=== PATIENT | male | born 1995 | race Caucasian/White ===

== ENCOUNTER 2021-04-15 20:32 | Inpatient (IN) | payer MEDICAID, OTHER ==
[~2021-04-15] VITALS: Ht 182.9 cm; Wt 101.6 kg
[2021-04-15 21:05] LABS: AMPHET/METH SCREEN,URINE NEGATIVE (NEGATIVE); BARBITURATE SCREEN, URINE NEGATIVE (NEGATIVE); BENZODIAZEPINES SCREEN,URINE POSITIVE (NEGATIVE); CANNABINOID SCREEN,URINE POSITIVE (NEGATIVE); COCAINE SCREEN,URINE NEGATIVE (NEGATIVE); METHADONE SCREEN, URINE NEGATIVE (NEGATIVE); OPIATE SCREEN,URINE NEGATIVE (NEGATIVE)
[2021-04-15 21:06] LABS: PHENCYCLIDINE SCREEN,URINE NEGATIVE (NEGATIVE)
[2021-04-15 21:16] LABS: BASOPHILS % (AUTO) 0.1 % (0.0-2.0); HEMATOCRIT 47.2 % (41-53); HEMOGLOBIN 15.9 g/dL (13.5-17.5); LYMPHOCYTES # (AUTO) 2.6 K/uL (1.0-4.8); LYMPHOCYTES % (AUTO) 33.1 % (22.0-44.0); MEAN CORPUSCULAR HEMOGLOBIN 30.2 pg (26.0-34.0); MEAN CORPUSCULAR HGB CONC 33.7 G/dL (31.0-37.0); MEAN CORPUSCULAR VOLUME 90 fL (80-100); MONOCYTES # (AUTO) 1.2 K/uL (0.1-1.0); MONOCYTES % (AUTO) 15.7 % (2.0-9.0); NEUTROPHILS # (AUTO) 3.8 K/uL (1.8-7.7); NEUTROPHILS % (AUTO) 49.1 % (40.0-70.0); PLATELET COUNT (AUTO) 163 K/uL (150-450); RED BLOOD CELL COUNT(AUTO) 5.27 MIL/uL (4.50-5.90)
[2021-04-15] MEDS ORDERED: FAMO40TA7 PO (21:21)
[2021-04-15] MEDS ORDERED: PROP40TA7 PO (21:21)
[2021-04-15] MEDS ORDERED: FLUO20CA36 PO (21:21)
[2021-04-15] MEDS ORDERED: ONDA4TAB10 PO (21:21)
[2021-04-15] MEDS ORDERED: GABA600T10 PO (21:21)
[2021-04-15] MEDS ORDERED: SUCR1TAB PO (21:21)
[2021-04-15] MEDS ORDERED: DIAZ5TAB5 PO (21:21)
[2021-04-15] MEDS ORDERED: CLON0.1T2 PO (21:21)
[2021-04-15 21:24] LABS: ANION GAP 14 mmol/L (8-16); CALCIUM, TOTAL 8.6 mg/dL (8.8-10.5); CARBON DIOXIDE 26 mmol/L (22-29); CHLORIDE 106 mmol/L (98-107); CREATININE 0.83 mg/dL (0.60-1.30); GLOMERULAR FILTR. RATE CALC > 60 mL/min (>60); GLUCOSE,RANDOM 111 mg/dL (70-110); POTASSIUM 3.2 mmol/L (3.5-5.1); SODIUM SERUM 146 mmol/L (136-145); UREA NITROGEN, BLOOD 4 mg/dL (7-18)
[2021-04-15 21:30] LABS: ALANINE AMINOTRANSFERASE 209 U/L (12-78); ALBUMIN 3.8 g/dL (3.4-5.0); ALKALINE PHOSPHATASE 192 U/L (46-116); ASPARTATE AMINOTRANSFERASE 98 U/L (15-37); BILIRUBIN,TOTAL 0.5 mg/dL (0.1-1.0); TOTAL PROTEIN, SERUM 7.7 g/dL (6.4-8.2)
[2021-04-15 21:50] LABS: COVID AG,FIA SOURCE NASOPHARYNGEAL
[2021-04-15] MEDS ORDERED: LORazepam 2 MG TABLET PO ONE (22:00)
[2021-04-15] MEDS ORDERED: LORazepam 2 MG TABLET PO PRN (22:30)
[2021-04-15] MEDS: ZOLPIDEM TARTRATE 10 MG TABLET PO PRN (22:46)
[2021-04-15] MEDS: HALOPERIDOL 5 MG TABLET PO PRN (22:46)
[2021-04-15] MEDS ORDERED: NICOTINE 21 MG/24 HOUR PATCH TD ONE (23:30)
[2021-04-16] VITALS (8 sets, daily range): BP systolic 103–151; BP diastolic 63–97
[2021-04-16] MEDS ORDERED: LIDOCAINE 1%/EPI 1:200,000/PF 10 ML VIAL PERC ONE (00:15)
[2021-04-16] MEDS ORDERED: BACITRACIN 0.9 GM PACKET OINTMENT TP ONE (00:45)
[2021-04-16 03:32] LABS: APPEARANCE,URINE CLEAR (CLEAR); BILIRUBIN,URINE NEGATIVE (NEGATIVE); GLUCOSE, URINE (UA) NEGATIVE (NEGATIVE); KETONES,URINE NEGATIVE (NEGATIVE); LEUKOCYTE ESTERASE ,URINE NEGATIVE (NEGATIVE); NITRATE,URINE NEGATIVE (NEGATIVE); OCCULT BLOOD,URINE SMALL (NEGATIVE); PROTEIN,URINE NEGATIVE (NEGATIVE); UROBILINOGEN,URINE 0.2 mg/dL (<=1.0)
[2021-04-16 03:44] LABS: BACTERIA,URINE Rare /HPF (None Seen); WBC,URINE 0-2 /HPF (0-5)
[2021-04-16] MEDS: LORazepam 2 MG TABLET PO PRN ×2 (03:51→11:32)
[2021-04-16] MEDS ORDERED: ONDANSETRON HCL 4 MG TABLET PO PRN ×2 (06:15→11:00)
[2021-04-16] MEDS ORDERED: POTASSIUM CHLORIDE 20 MEQ ER TABLET PO ONE (06:30)
[2021-04-16] MEDS: FAMOTIDINE 20 MG TABLET PO SCH (08:34)
[2021-04-16] MEDS: LORazepam 2 MG TABLET PO SCH ×4 (08:34→21:56)
[2021-04-16] MEDS ORDERED: POTASSIUM CHLORIDE 20 MEQ ER TABLET PO SCH (09:00)
[2021-04-16] MEDS ORDERED: MAG HYDROX/AL HYDROX/SIMETH ES 30 ML SUSPENSION UDCUP PO PRN (11:00)
[2021-04-16] MEDS ORDERED: DOCUSATE SODIUM 100 MG CAPSULE PO PRN (11:00)
[2021-04-16] MEDS ORDERED: PETROLATUM,WHITE 28 GM JELLY TP PRN (11:00)
[2021-04-16] MEDS ORDERED: CloNIDine HCL 0.1 MG TABLET PO PRN (11:00)
[2021-04-16] MEDS ORDERED: NICOTINE 14 MG/24 HOUR PATCH TD PRN (11:00)
[2021-04-16] MEDS ORDERED: GuaiFENesin/D-METHORPHAN [SUGAR-FREE] 200-20MG/10 ML SYRUP UDCUP PO PRN (11:00)
[2021-04-16] MEDS ORDERED: IBUPROFEN 400 MG TABLET PO PRN (11:00)
[2021-04-16] MEDS ORDERED: MAGNESIUM HYDROXIDE SUSPENSION 30 ML UDCUP PO PRN (11:00)
[2021-04-16] MEDS ORDERED: ALBUTEROL SULFATE HFA 90 MCG/PUFF 8 GM INHALER IH PRN (11:00)
[2021-04-16] MEDS ORDERED: LOPERAMIDE HCL 2 MG CAPSULE PO PRN (11:00)
[2021-04-16] MEDS ORDERED: ACETAMINOPHEN 325 MG TABLET PO PRN (11:00)
[2021-04-16] MEDS: SUCRALFATE 1 GM TABLET PO SCH ×4 (11:22→21:56)
[2021-04-16] MEDS: HALOPERIDOL 5 MG TABLET PO PRN (11:31)
[2021-04-16] MEDS: FLUoxetine HCL 20 MG CAPSULE PO SCH (17:27)
[2021-04-16] MEDS: PROPRANOLOL HCL 40 MG TABLET PO SCH (21:00)
[2021-04-17 00:38] VITALS: BP 122/71
[2021-04-17] MEDS: ZOLPIDEM TARTRATE 10 MG TABLET PO PRN ×2 (00:47→20:34)
[2021-04-17 04:38] VITALS: BP 127/78
[2021-04-17 06:30] VITALS: BP 129/81
[2021-04-17] MEDS: FAMOTIDINE 20 MG TABLET PO SCH (08:29)
[2021-04-17] MEDS: SUCRALFATE 1 GM TABLET PO SCH ×4 (08:29→20:00)
[2021-04-17] MEDS: FLUoxetine HCL 20 MG CAPSULE PO SCH (08:29)
[2021-04-17] MEDS: LORazepam 2 MG TABLET PO SCH ×5 (08:29→20:00)
[2021-04-17] MEDS: NICOTINE POLACRILEX 2 MG LOZENGE PO PRN ×2 (09:45→18:03)
[2021-04-17 11:20] VITALS: BP 150/88
[2021-04-17] MEDS: HALOPERIDOL 5 MG TABLET PO PRN ×2 (11:33→16:33)
[2021-04-17 15:10] VITALS: BP 158/89
[2021-04-17] MEDS: LORazepam 2 MG TABLET PO PRN ×2 (15:14→18:04)
[2021-04-17 17:02] VITALS: BP 140/80
[2021-04-17] MEDS: PROPRANOLOL HCL 40 MG TABLET PO SCH (20:00)
[2021-04-18 03:30] VITALS: BP 139/89
[2021-04-18] MEDS: LORazepam 2 MG TABLET PO PRN (03:34)
[2021-04-18] MEDS ORDERED: LORazepam 1 MG TABLET PO PRN (07:00)
[2021-04-18] MEDS: FAMOTIDINE 20 MG TABLET PO SCH (08:36)
[2021-04-18] MEDS: SUCRALFATE 1 GM TABLET PO SCH ×4 (08:36→20:38)
[2021-04-18] MEDS: FLUoxetine HCL 20 MG CAPSULE PO SCH (08:36)
[2021-04-18] MEDS: LORazepam 1 MG TABLET PO SCH ×4 (08:37→20:38)
[2021-04-18] MEDS: HALOPERIDOL 5 MG TABLET PO PRN ×3 (08:38→17:13)
[2021-04-18] MEDS: NICOTINE POLACRILEX 2 MG LOZENGE PO PRN (09:37)
[2021-04-18 10:04] VITALS: BP 142/88
[2021-04-18 16:50] VITALS: BP 136/97
[2021-04-18 17:50] VITALS: BP 139/81
[2021-04-18] MEDS: PROPRANOLOL HCL 40 MG TABLET PO SCH (20:39)
[2021-04-19] MEDS: ZOLPIDEM TARTRATE 10 MG TABLET PO PRN (03:01)
[2021-04-19] MEDS ORDERED: LORazepam 1 MG TABLET PO PRN (07:00)
[2021-04-19] MEDS: SUCRALFATE 1 GM TABLET PO SCH ×2 (08:07→12:12)
[2021-04-19] MEDS: FLUoxetine HCL 20 MG CAPSULE PO SCH (08:07)
[2021-04-19] MEDS: FAMOTIDINE 20 MG TABLET PO SCH (08:08)
[2021-04-19] MEDS: HALOPERIDOL 5 MG TABLET PO PRN (08:10)
[2021-04-19] MEDS: NICOTINE POLACRILEX 2 MG LOZENGE PO PRN (08:12)
[2021-04-19 08:50] VITALS: BP 127/78
== END 2021-04-19 12:20 | disposition home or self-care (01) | DRG 750 ==
LOC: EMS 20:38 → 3EI 04-16 02:38
DX: F25.1 Schizoaffective disorder, depressive type (principal); E87.0 Hyperosmolality and hypernatremia; F33.2 Major depressive disorder, recurrent severe without psychotic features; G40.909 Epilepsy, unspecified, not intractable, without status epilepticus; E87.6 Hypokalemia; F10.10 Alcohol abuse, uncomplicated; F12.10 Cannabis abuse, uncomplicated; K21.9 Gastro-esophageal reflux disease without esophagitis; Z20.822 Contact with and (suspected) exposure to COVID-19; F17.210 Nicotine dependence, cigarettes, uncomplicated; Y90.8 Blood alcohol level of 240 mg/100 ml or more; Z71.41 Alcohol abuse counseling and surveillance of alcoholic; Z79.899 Other long term (current) drug therapy
CPT/HCPCS: 80053; 80061; 81001; 84132; 85025; 99285; G0480; J3490; Q9967